=== PATIENT | male | born 2005 | race Two or more races ===

== ENCOUNTER 2025-04-23 12:51 | Emergency (ER) | payer BC, SELFPAY ==
[2025-04-23 12:52] VITALS: BMI 29.6
[2025-04-23 13:08] VITALS: BP 130/67; PULSE 110; RESP 20; TEMP 37.4; O2SAT 95
--- NOTE | 2025-04-23 13:11 | XR_ITS ---
EXAMINATION: PA chest single view TECHNIQUE: Upright PA chest single view Date and time: April, 1349 hours INDICATIONS: Coughing beginning 3 days ago. FINDINGS: Normal heart size Lungs are clear. Osseous structures are intact IMPRESSION: No active disease
--- NOTE | 2025-04-23 13:11 | EKG_ITS ---
[facility] Test Date: 2025-04-23 Pat Name: MATTHIAS CLAY Department: Room: - Gender: Male Clinical Training Coordinator: : 2005 Requested By: Nikko Brown Order Number: [id number] Reading MD: Nikko Brown Measurements Intervals [place] Rate: 116 P: 50 [place]: 152 QRS: 90 QRSD: 100 T: 34 QT: 306 QTc: 426 Interpretive Statements SINUS TACHYCARDIA POSSIBLE LEFT ATRIAL ENLARGEMENT [-0.1mV P-WAVE IN V1/V2] INCOMPLETE RIGHT BUNDLE BRANCH BLOCK [90+ ms QRS DURATION, TERMINAL R IN V1/V2, 40+ ms S IN I/aVL/V4/V5/V6] NONSPECIFIC ST ELEVATION [0.05+ mV ST ELEVATION] ABNORMAL RHYTHM ECG No previous ECG available for comparison /store/S0/[id number]/ecg/[id number].pdf
[2025-04-23] MEDS: DEXAMETHASONE SOD PHOS INJ 10 MG/ML VIAL IM (13:27)
[2025-04-23] MEDS: ALBUTEROL/IPRATROPIUM (Duoneb) RT SOL 3 ML NEBU INH (13:40)
[2025-04-23 13:41] VITALS: PULSE 120; RESP 20; O2SAT 99
[2025-04-23 13:51] LABS: Basophils # (Auto) 0.1 Thou/mm3 (0.0-0.2); Basophils % (Auto) 1 % (0-2.5); Eosinophils # (Auto) 0.3 Thou/mm3 (0.0-0.5); Eosinophils % (Auto) 3 % (0-10); Hematocrit 48.6 % (41.0-53.0); Hemoglobin 16.6 g/dL (13.5-16.0); Immature Granulocytes Auto 0.08 Thou/mm3 (0.00-0.00); Lymphocytes # (Auto) 2.5 Thou/mm3 (1.0-4.8); Lymphocytes % (Auto) 20 % (10-50); Mean Corpuscular HGB Conc 34.2 g/dl (31.0-37.0); Mean Corpuscular Hemoglobin 30.1 pg (25.0-35.0); Mean Corpuscular Volume 88 fL (80-100); Monocytes # (Auto) 1.1 Thou/mm3 (0.0-0.8); Monocytes % (Auto) 9 % (0-12); Neutrophils # (Auto) 8.6 Thou/mm3 (1.8-7.7); Neutrophils % (Auto) 68 % (37-80); Nucleated Red Blood Cell # 0.00 Thou/mm3 (0.00-0.00); Nucleated Red Blood Cell % 0 /100 WBC (0); Platelet Count 327 Thou/mm3 (140-440); RDW Standard Deviation 43.5 fL (35.1-43.9); Red Blood Count 5.52 Miln/mm3 (4.50-5.90); White Blood Count 12.7 Thou/mm3 (3.8-10.6)
[2025-04-23 14:03] LABS: Alanine Aminotransferase 84 U/L (10-49); Albumin, Serum 5.3 gm/dL (3.5-5.0); Albumin/Globulin Ratio 2.3 (1.2-2.2); Alkaline Phosphatase 59 U/L (46-116); Anion Gap 10 (7-16); Aspartate Amino Transferase 31 U/L (0-34); BUN/Creatinine Ratio 9 Ratio (12-20); Bilirubin,Total 0.5 mg/dL (0.3-1.2); Blood Urea Nitrogen 8 mg/dL (9-23); Calcium 10.1 mg/dL (8.3-10.6); Calcium (Corrected) 10.1 mg/dL (8.5-10.1); Carbon Dioxide 25.6 mMol/L (20.0-31.0); Chloride 106 mMol/L (98-107); Creatinine (Component) 0.9 mg/dL (0.6-1.3); Estimated Creatinine Clearance 140.3 mL/min (>60); Globulin 2.3 gm/dL (2.3-3.5); Glucose 114 mg/dL (74-106); Osmolality,Calculated 282 (275-295); Potassium 3.7 mMol/L (3.4-5.1); Sodium 142 mMol/L (136-145); Total Protein 7.6 gm/dL (5.7-8.2); Troponin I < 0.020 ng/mL (0.0-0.045); eGFR > 60 See Note
[2025-04-23 14:44] LABS: Collection Type, Urine Clean Catch; Squamous Epithelial Cell,Urine 0 /hpf (0-5)
[2025-04-23 14:52] LABS: Bilirubin,Urine Negative (Negative); Blood,Urine Negative (Negative); Clarity,Urine Clear (Clear/Hazy); Color,Urine Yellow (Lt Yel-Yel); Glucose, Urine Negative (Negative); Ketones,Urine Negative (Negative); Leukocyte Esterase,Urine Negative (Negative); Nitrite,Urine Negative (Negative); PH,Urine 6.0 (5.0-7.0); Protein,Urine Trace (Neg - Trace); RBC,Urine 3 /hpf (0-3); Specific Gravity,Urine 1.030 (1.001-1.035); Urobilinogen,Urine Negative mg/dL (0.0-1.0); WBC,Urine < 1 /hpf (0-5)
[2025-04-23 16:00] VITALS: BP 135/92; PULSE 113; RESP 16; TEMP 36.8; O2SAT 96
--- NOTE | 2025-04-23 16:04 | EDNOTE_ITS ---
Upper Respiratory Inf. RME/HPI General Chief Complaint: Flu Like Symptoms Stated Complaint: COUGH, CHEST PAIN, AND HEADACHE Time Seen by Provider: 04/23/25 13:02 Arrival date/time: 04/23/25 12:51 Patient is a case of 19-year-old male with no medical history came in in the emergency room due to pleuritic chest pain especially when coughing history of present illness started 2 weeks prior to arrival in the emergency room patient had productive cough and nasal congestion seen by the primary care physician were he was diagnosed to have acute bronchitis and discharged with amoxicillin patient symptoms then improved but symptoms recur yesterday now with pleuritic chest pain and frontal headache thus patient decided to sought consult here in the emergency room no palpitation no shortness of breath no wheezing noted Limitations: no limitations Related Data Previous Rx's ?Medication ?Instructions ?Recorded albuterol sulfate 90 mcg/actuation 2 puff inhalation Q 4H PRN 04/23/25 aerosol inhaler (Ventolin HFA) shortness of breath or wheezing #8.5 grams azithromycin 250 mg tablet See Rx Instructions PO .COM PLEX #6 04/23/25 tabs benzonatate 200 mg capsule 200 mg PO TID PRN cough #20 caps 04/23/25 prednisone 20 mg tablet See Taper PO QDAY 5 days #5 tabs 04/23/25 promethazine-DM 6.25 mg-15 mg/5 mL 5 ml PO Q6H PRN cou gh #118 mL 04/23/25 oral syrup Allergies Allergy/AdvReac Type Severity Reaction Status Date / Time No Known Allergies Allergy Verified 04/23/25 12:55 Review of Systems Review of Systems Systems Reviewed: All systems reviewed, normal except as documented Constitutional Constitutional: Reports system reviewed and no additional complaints, except as documented and Reports as per HPI ENT Ears, Nose, Mouth, and Throat: Reports system reviewed and no additional complaints, except as documented and Reports as per HPI Cardiovascular Cardiovascular: Reports system reviewed and no additional complaints, except as documented and Reports as per HPI Respiratory Respiratory: Reports system reviewed and no additional complaints, except as documented and Reports as per HPI Gastrointestinal Gastrointestinal: Reports system reviewed and no additional complaints, except as documented and Reports as per HPI Neurologic Neurologic: Reports system reviewed and no additional complaints, except as documented and Reports as per HPI Past Medical History Social History SMOKING STATUS: Never smoker ED Exam General Limitations: Present no limitations General appearance: Present alert, in no apparent distress and other (Patient is awake alert oriented not in distress nontoxic looking well-hydrated well- nourished) Head Head exam: Present atraumatic, normocephalic and normal inspection Eye Eye exam: Present normal appearance, PERRL and EOMI ENT ENT exam: Present normal exam, normal oropharynx, mucous membranes moist and other (HEENT exam is normal and unremarkable) Neck Neck exam: Present normal inspection, full ROM, trachea midline and other (Negative for meningeal sign); Absent tenderness, meningismus, lymphadenopathy or thyromegaly Chest Chest inspection: Present normal inspection and symmetric chest wall rise; Absent tenderness Respiratory Respiratory exam: Present normal lung sounds bilaterally and wheezes; Absent respiratory distress, stridor, accessory muscle use or prolonged expiratory phase Cardiovascular Cardiovascular exam: Present regular rate, normal rhythm and normal heart sounds; Absent bradycardia, tachycardia, irregular rhythm, systolic murmur or diastolic murmur Abdominal Exam Abdominal exam: Present soft and normal bowel sounds; Absent distention, tenderness, guarding, rebound, rigidity, diminished bowel sounds, hyperactive bowel sounds, hypoactive bowel sounds or organomegaly Extremities Exam Extremities exam: Present normal inspection and full ROM Back Exam Back exam: Present normal inspection and full ROM Neurological Exam Neurological exam: Present alert, oriented X3, CN II-XII intact, normal gait and reflexes normal; Absent motor sensory deficit Psychiatric Psychiatric exam: Present normal affect and normal mood Skin Skin exam: Present warm, dry, intact, normal color and other (Excellent skin turgor) Course Quality Measures none Orders Category Date Time Status EKG (ED ONLY) *Do not use* NOW Care 04/23/25 13:15 Completed EKG (ED Only) Stat Exams 04/23/25 13:11 Draft XR chest 1V Stat Exams 04/23/25 13:11 Completed CBC Stat Lab 04/23/25 13:26 Completed Comprehensive Metabolic Panel Stat Lab 04/23/25 13:26 Completed Troponin I Stat Lab 04/23/25 13:26 Completed Urinalysis Stat Lab 04/23/25 14:23 Completed Albuterol/Ipratr Rt Tiara [Duoneb Rt Tiara] Med 04/23/25 13:11 Discontinued 3 ml INH X1 ONE Dexamethasone Inj [Decadron Inj] Med 04/23/25 13:11 Discontinued 10 mg IM X1 ONE Vital Signs Vital signs: Vital Signs Temperature 99.4 F 04/23/25 13:08 Pulse Rate 110 H 04/23/25 13:08 Respiratory Rate 20 04/23/25 13:08 Blood Pressure 130/67 04/23/25 13:08 Pulse Oximetry (%) 95 04/23/25 13:08 Oxygen Delivery Method Room Air 04/23/25 13:08 Oxygen saturation is 95% in the room air Upper Respiratory Infection MDM Narrative MDM Narrative:: Patient is a case of 19-year-old male with no medical history came in in the emergency room due to pleuritic chest pain especially when coughing history of present illness started 2 weeks prior to arrival in the emergency room patient had productive cough and nasal congestion seen by the primary care physician were he was diagnosed to have acute bronchitis and discharged with amoxicillin patient symptoms then improved but symptoms recur yesterday now with pleuritic chest pain and frontal headache thus patient decided to sought consult here in the emergency room no palpitation no shortness of breath no wheezing noted physical examination patient is awake alert oriented not in distress nontoxic looking well-hydrated well-nourished patient vital signs noted BP stable patient is mildly tachycardic at 113 heart rate patient is not tachypneic not hypoxic oxygen saturation is ranging 96 to 100% and afebrile patient HEENT exam is normal and unremarkable negative for meningeal sign patient lung sounds showed wheezing both lower lung field no crackles no rales no retraction no stridor heart normal rhythm mildly tachycardic no murmur no edema the rest of the physical examination and neurological exam is normal and unremarkable patient was given oral hydration of 1 L heart rate was rechecked and noted it improved noted 95 patient blood test showed leukocytosis at 12.5 no anemia kidney and liver function is normal no electrolyte imbalance patient troponin is negative patient EKG is sinus tach at 113 chest x-ray normal at this point patient chest pain is not cardiac in origin possibly due to acute bronchitis I do not think patient is having pulmonary embolism patient was given a breathing treatment of DuoNeb and steroid which patient condition improved and resolved patient will follow-up with PCP in 2 days for reevaluation worsening symptoms or any emergent concern return precaution in the ER was advised patient was discharged with azithromycin since the patient was already given amoxicillin last week patient was also given a cough medication Ventolin inhaler and prednisone for 5 days patient was advised to follow-up with PCP in 2 days for reevaluation and to be referred to telecommunications facility examiner for further evaluation and treatment of chest pain for possible echocardiogram stress test and Holter monitor recurrence worsening symptoms or any emergent concern call 911 or go to the nearest emergency room Patient was discharged with comfortable condition walking with stable gait. Patient verbalized no further complains explained diagnosis and answered patient question. Patient is comfortable with the proposed management plan including the need to follow up with his/her primary care physician and any specialist if applicable Discussed patient for any urgent condition or worsening sx, He/She needed to go to emergency room immediately or call 911. Patient acknowledge the responsibility to follow up as instructed and to monitor her/his symptoms. For any persistence of the symptoms for more than 3-5 days return precaution advised. Discussed the result of the test and was given printed discharge instruction Patient data External records reviewed:: [facility] previous records Clinical information provided by:: patient Social determinants that could affect healthcare access:: none Patient has the following chronic illnesses:: None How is presenting disease/condition affected by chronic disease/condition?: no chronic disease Evaluation data The following diagnostics were reviewed and interpreted by me:: lab results, radiology exam(s) and EKG tracing(s) Lab and/or radiology exams considered but not ordered:: Reviewed Interpretation Summary: Reviewed Medications / Prescriptions Medications or Prescriptions considered but not ordered:: Given Medication administrations:: Medication Administration History Discontinued Medications Albuterol/Ipratropium (Albuterol/Ipratropium (Duoneb) Rt Tiara 3 Ml Nebu) 3 ml INH X1 ONE Stop: 04/23/25 13:12 Last Admin: 04/23/25 13:40 Dose: 3 ml Documented By: [facility] Dexamethasone Sodium Phosphate (Dexamethasone Sod Phos Inj 10 Mg/Ml Vial) 10 mg IM X1 ONE Stop: 04/23/25 13:12 Last Admin: 04/23/25 13:27 Dose: 10 mg Documented By: Given Consultations Consultation(s) initiated? (list below): No Diagnosis Upper Respiratory Differential Diagnosis: upper respiratory infection, sinusitis, bronchitis and pharyngitis Most likely diagnosis given after review of the tests above:: Acute bronchitis Admission Indicated Admission indicated?: not indicated Explain why admission is indicated or not indicated:: Not in the Admission Request Was there a request for admission?: No Disposition Plan Disposition Plan: Discharge Discharge Attestation Discharge Attestation: The patient and all family members were given an opportunity to ask questions and understood the discharge instructions. Discharge instructions specifically effects, indications for sooner follow up or return to the emergency department, and the expected course of current diagnosis. Patient condition: Stable Discharge Plan Plan Patient Disposition: HOME (Self Care) Patient condition on transfer: Stable Prescriptions/Referrals Prescriptions/Med Rec: New azithromycin 250 mg tablet See Rx Instructions .ROUTE .COMPLEX Qty: 6 0RF Rx Instructions: For 250 mg dose pack: take 500 mg today (day 1), then 250 mg for 4 days (days 2-5) promethazine-DM 6.25-15 mg/5 mL syrup 5 ml PO Q6H PRN (Reason: cough) Qty: 118 0RF benzonatate 200 mg capsule 200 mg PO TID PRN (Reason: cough) Qty: 20 0RF prednisone 20 mg tablet See Taper PO QDAY 5 Days Qty: 5 0RF Taper: Prednisone Taper 20 mg DAILY for 2 Days and 0 Hour 10 mg DAILY for 2 Days and 0 Hour 5 mg DAILY for 7 Days and 0 Hour albuterol sulfate [Ventolin HFA] 90 mcg/actuation HFA aerosol inhaler 2 puff inhalation Q4H PRN (Reason: shortness of breath or wheezing) Qty: 8.5 0RF Referrals: Iggy Anderson MD [Primary Care Provider, Family Practice] - In 1 week Problem List Clinical Impression: Acute bronchitis, Chest pain of unknown etiology Patient/Caregiver Discharge Instructions Education Materials: ED Bronchitis with Wheezing (Adult), ED Chest Pain, Uncertain Cause Additional Instructions: Follow-up with your primary care physician in 2 days for reevaluation and to be referred to telecommunications facility examiner for further evaluation and treatment of chest pain for possible echocardiogram stress test and Holter monitor recurrence persistent worsening symptoms or any emergent concern call 911 or go to the nearest [facility] room take your medication as directed finish course of antibiotic increase water intake keep hydrated take vitamin C daily Pedialyte Gatorade for hydration Print Language: Frisian Stand Alone Forms: Jaqueline Award Info., Patient Portal Info Letter PA/RED LEAD BURNER Supervising Physician PA/RED LEAD BURNER Supervising Physician: Dr. Reed
[2025-04-23] MEDS: ONDANSETRON ODT 4 MG TABRAP PO (16:33)
[2025-04-23] MEDS: SODIUM CHLORIDE 0.9% 1000 ML 1,000 ML 999 ML IV (16:42)
[2025-04-23 17:36] VITALS: BP 142/79; PULSE 100; RESP 18; TEMP 36.7; O2SAT 98
== END 2025-04-23 17:42 | disposition home or self-care (01) ==
PROVIDERS: Nurse Practitioner Family; Emergency Provider Emergency Medicine; PCP Family Medicine
DX: J20.9 Acute bronchitis, unspecified (principal); I45.10 Unspecified right bundle-branch block; R00.0 Tachycardia, unspecified
CPT/HCPCS: 36415; 71045; 80053; 81001; 84484; 85025; 87491; 87591; 87661; 93005; 94640; 96360; 96372; 99284; A9270; J1100; J7030; Q0162